=== PATIENT | female | born 1965 | race Caucasian/White ===

== ENCOUNTER 2023-08-03 13:26 | Emergency (ER) | payer OTHER ==
[~2023-08-03] VITALS: Ht 165.1 cm; Wt 72.6 kg
[~2023-08-03 13:26] MED LIST: ALPR.5 PO; ARIP10 PO; Amoxicillin875 MG PO; DULO30; DULO60 PO; ESTMET PO; ESTR2 PO; HYDACE5; MELO7.5 PO; MORP30ER PO; Norco 5-325 Ta1 EACH PO; TRAM50 PO
[2023-08-03 13:37] VITALS: BP 153/107
[2023-08-03 14:53] LABS: Source, Urine Voided
[2023-08-03 15:00] LABS: BASOPHILS ABSOLUTE AUTO 0.06 K/mm3 (0.00-0.23); BASOPHILS PERCENT AUTO 1 % (0-2); EOSINOPHILS ABSOLUTE AUTO 0.03 K/mm3 (0.00-0.68); EOSINOPHILS PERCENT AUTO 1 % (0-6); Hematocrit 42.2 % (33.0-51.0); Hemoglobin 14.5 g/dL (11.5-16.0); IMMATURE GRAN ABSOLUTE AUTO 0.01 K/mm3 (0.00-0.10); IMMATURE GRAN PERCENT AUTO 0 % (0-1); LYMPHOCYTES ABSOLUTE AUTO 1.55 K/mm3 (0.84-5.20); LYMPHOCYTES PERCENT AUTO 28 % (21-46); MONOCYTES ABSOLUTE AUTO 0.42 K/mm3 (0.16-1.47); MONOCYTES PERCENT AUTO 8 % (4-13); Mean Corpuscular HGB 30.7 pg (26.0-34.0); Mean Corpuscular HGB Conc 34.4 g/dL (31.5-36.5); Mean Corpuscular Volume 89 fL (80-100); Mean Platelet Volume 9.1 fL (9.1-12.4); NEUTROPHILS ABSOLUTE AUTO 3.43 K/mm3 (1.96-9.15); NEUTROPHILS PERCENT AUTO 62 % (41-73); Platelet Count 332 K/mm3 (150-400); RDW Coefficient Variation 12.2 % (11.7-14.2); RDW Standard Deviation 40.5 fL (35.1-46.3); Red Blood Cell Count 4.72 M/mm3 (3.80-5.20)
[2023-08-03 15:25] LABS: Albumin, Blood 3.9 g/dL (3.4-5.0); Albumin/Globulin Ratio 1.4 (0.8-1.8); Bilirubin, Total 0.3 mg/dL (0.1-1.0); Bun/Creatinine Ratio 14.7 (12.0-20.0); Calcium, Blood 8.8 mg/dL (8.5-10.1); Creatinine, Blood 0.82 mg/dL (0.40-1.00); Globulin, Blood 2.8 g/dL (2.2-4.0); Potassium, Blood 3.7 mmol/L (3.5-5.5); Total Protein, Blood 6.7 g/dL (6.4-8.2)
[2023-08-03 16:05] LABS: Appearance, Urine Hazy (Clear); Bilirubin, Urine Neg (Neg); Blood, Urine Neg (Neg); Color, Urine Yellow (P-Yellow); Glucose Qualitative, Urine Neg (Neg); Ketones, Urine Neg (Neg); Leukocyte Esterase, Urine Neg (Neg); Nitrite, Urine Neg (Neg); Protein, Urine Neg (Neg); Urobilinogen, Urine NORM (Normal)
[2023-08-03 16:27] LABS: Bacteria Many /hpf; Mucus Light (0-Heavy); Red Blood Cells, Urine 0-2 /hpf (0-2); Squamous Epithelial Cells Mod /hpf (Few); Transitional Epithelial Cells Rare /hpf (0-Rare); White Blood Cells, Urine 0-2 /hpf (0-5)
[2023-08-03] MEDS ORDERED: NAPR500ERA PO (16:50)
[2023-08-03] MEDS ORDERED: METPRE4DP PO (16:50)
[2023-08-03] MEDS ORDERED: Norco 5-325 Ta1 EACH PO (16:50)
== END 2023-08-03 16:57 | disposition home or self-care (01) ==
LOC: ER 13:26
PROVIDERS: Emergency Medicine
DX: M54.10 Radiculopathy, site unspecified (principal); Z79.899 Other long term (current) drug therapy; M19.90 Unspecified osteoarthritis, unspecified site; F17.210 Nicotine dependence, cigarettes, uncomplicated
CPT/HCPCS: 80053; 81001; 85025; 96374; 99283-25; A9270; J1100; J1885

== ENCOUNTER → 2023-08-10 | Outpatient (CLI) | payer OTHER ==
[~2023-08-10] MED LIST changes: +METPRE4DP PO; +NAPR500ERA PO
== END ==
LOC: LAB SHORT 11:10 → LAB 11:10
DX: R30.0 Dysuria (principal)
CPT/HCPCS: 87086

== ENCOUNTER → 2024-04-22 | Outpatient (CLI) | payer OTHER | END | disposition home or self-care (01) | LOC: LAB SHORT 15:38 | DX: N89.8 Other specified noninflammatory disorders of vagina (principal); R30.0 Dysuria | CPT/HCPCS: 87086 ==

== ENCOUNTER 2024-10-22 13:51 | Emergency (ER) | payer OTHER ==
[~2024-10-22] VITALS: Ht 162.6 cm; Wt 83.9 kg
[2024-10-22 14:18] VITALS: BP 186/81
[2024-10-22 14:52] LABS: BASOPHILS ABSOLUTE AUTO 0.04 K/mm3 (0.00-0.23); BASOPHILS PERCENT AUTO 1 % (0-2); EOSINOPHILS ABSOLUTE AUTO 0.06 K/mm3 (0.00-0.68); EOSINOPHILS PERCENT AUTO 1 % (0-6); Hematocrit 38.1 % (33.0-51.0); Hemoglobin 12.2 g/dL (11.5-16.0); IMMATURE GRAN ABSOLUTE AUTO 0.01 K/mm3 (0.00-0.10); IMMATURE GRAN PERCENT AUTO 0 % (0-1); LYMPHOCYTES ABSOLUTE AUTO 1.44 K/mm3 (0.84-5.20); LYMPHOCYTES PERCENT AUTO 25 % (21-46); MONOCYTES ABSOLUTE AUTO 0.34 K/mm3 (0.16-1.47); MONOCYTES PERCENT AUTO 6 % (4-13); Mean Corpuscular HGB 28.8 pg (26.0-34.0); Mean Corpuscular Volume 90 fL (80-100); NEUTROPHILS ABSOLUTE AUTO 3.93 K/mm3 (1.96-9.15); NEUTROPHILS PERCENT AUTO 68 % (41-73); Platelet Count 353 K/mm3 (150-400); RDW Coefficient Variation 12.8 % (11.7-14.2); RDW Standard Deviation 41.8 fL (35.1-46.3); Red Blood Cell Count 4.24 M/mm3 (3.80-5.20); White Blood Cell Count 5.82 K/mm3 (4.00-11.30)
[2024-10-22 15:16] LABS: Albumin, Blood 3.9 g/dL (3.4-5.0); Bilirubin, Total 0.4 mg/dL (0.1-1.0); Bun/Creatinine Ratio 10.9 (12.0-20.0); Calcium, Blood 9.8 mg/dL (8.5-10.1); Creatinine, Blood 0.92 mg/dL (0.40-1.00); Globulin, Blood 3.8 g/dL (2.2-4.0); Potassium, Blood 4.4 mmol/L (3.5-5.5); Total Protein, Blood 7.7 g/dL (6.4-8.2)
[2024-10-22] MEDS ORDERED: Percocet 5-3251 EACH PO (16:32)
[2024-10-25] MEDS ORDERED: Percocet 5-3251 EACH PO (13:15)
== END 2024-10-22 16:48 | disposition home or self-care (01) ==
LOC: ER 13:51
PROVIDERS: Student in an Organized Health Care Education/Training Program
DX: G89.18 Other acute postprocedural pain (principal); M54.50 Low back pain, unspecified; R20.2 Paresthesia of skin; I10 Essential (primary) hypertension; F17.210 Nicotine dependence, cigarettes, uncomplicated; Z79.899 Other long term (current) drug therapy
CPT/HCPCS: 71046; 80053; 85025; 93005; 93010; 99283-25

== ENCOUNTER 2025-08-05 11:18 | Inpatient (IN) | payer OTHER ==
[~2025-08-05] VITALS: Ht 162.6 cm; Wt 87.0 kg
[~2025-08-05 11:18] MED LIST changes: +Percocet 5-3251 EACH PO
[2025-08-05] MEDS ORDERED: Albuterol 2.5 MG/3 ML VIAL INH SCH (11:55)
[2025-08-05] MEDS ORDERED: Ketorolac Tromethamine 30mg Vial IV ONE (12:00)
[2025-08-05 12:03] LABS: BASOPHILS ABSOLUTE AUTO 0.03 K/mm3 (0.00-0.23); BASOPHILS PERCENT AUTO 0 % (0-2); EOSINOPHILS ABSOLUTE AUTO 0.03 K/mm3 (0.00-0.68); EOSINOPHILS PERCENT AUTO 0 % (0-6); Hematocrit 39.6 % (33.0-51.0); Hemoglobin 13.4 g/dL (11.5-16.0); IMMATURE GRAN ABSOLUTE AUTO 0.04 K/mm3 (0.00-0.10); IMMATURE GRAN PERCENT AUTO 0 % (0-1); LYMPHOCYTES ABSOLUTE AUTO 1.55 K/mm3 (0.84-5.20); LYMPHOCYTES PERCENT AUTO 16 % (21-46); MONOCYTES ABSOLUTE AUTO 0.82 K/mm3 (0.16-1.47); MONOCYTES PERCENT AUTO 8 % (4-13); Mean Corpuscular HGB Conc 33.8 g/dL (31.5-36.5); Mean Corpuscular Volume 87 fL (80-100); NEUTROPHILS ABSOLUTE AUTO 7.25 K/mm3 (1.96-9.15); NEUTROPHILS PERCENT AUTO 75 % (41-73); NRBC ABSOLUTE 0.00 K/mm3 (0.00-0.02); NRBC Auto 0.0 /100 WBC (0.0-0.2); Platelet Count 278 K/mm3 (150-400); RDW Coefficient Variation 13.6 % (11.7-14.2); RDW Standard Deviation 42.5 fL (35.1-46.3)
[2025-08-05 13:58] LABS: Alanine Aminotransfer (ALT/SGP 23.0 U/L (12-78); Albumin, Blood 3.6 g/dL (3.4-5.0); Albumin/Globulin Ratio 1.2 (0.8-1.8); Anion Gap 7.0 mmol/L (3-11); Aspartate Aminotrans (AST/SGOT 16.0 U/L (12-37); Bilirubin, Total 0.8 mg/dL (0.1-1.0); Blood Urea Nitrogen 10.0 mg/dL (8-24); CO2, Blood 34.0 mmol/L (21-32); Calcium, Blood 8.8 mg/dL (8.5-10.1); Chloride, Blood 100.0 mmol/L (98-108); Creatinine, Blood 0.76 mg/dL (0.40-1.00); Globulin, Blood 3.1 g/dL (2.2-4.0); Glucose, Blood 122.0 mg/dL (70-99); Potassium, Blood 3.5 mmol/L (3.5-5.5); Sodium, Blood 137.0 mmol/L (136-145); Total Protein, Blood 6.7 g/dL (6.4-8.2)
[2025-08-05 15:02] LABS: Influenza A, PCR NEGATIVE (NEGATIVE); Influenza B, PCR NEGATIVE (NEGATIVE); Resp Syncytial Virus, PCR NEGATIVE (NEGATIVE); SARS-Cov-2 (COVID-19) PCR, MMC NEGATIVE (NEGATIVE)
[2025-08-05] MEDS ORDERED: ABILIFY MYCITE10 M2 PO (15:28)
[2025-08-05] MEDS ORDERED: ONDA4ODT PO (15:29)
[2025-08-05] MEDS ORDERED: PREG100 PO (15:29)
[2025-08-05] MEDS ORDERED: TIZA4 PO (15:29)
[2025-08-05] MEDS ORDERED: FLU VACC TS2025-26(6MOS UP)/PF 45 MCG/0.5 ML SYRINGE IM SCH (18:00)
[2025-08-05] MEDS ORDERED: Ipratropium/Albuterol SulF 2.5-0.5MG/3 ML Amp INH SCH (18:00)
[2025-08-05] MEDS ORDERED: Ondansetron HCl 2 MG / ML 2ML Vial IV PRN (18:00)
[2025-08-05] MEDS ORDERED: Albuterol 2.5 MG/3 ML VIAL INH PRN (18:00)
[2025-08-05] MEDS ORDERED: HYDROcodone 5-APAP 325 TAB PO PRN (18:05)
[2025-08-05 18:31] LABS: pH Blood Venous 7.42 (7.34-7.37)
[2025-08-05 21:00] VITALS: BP 124/69
[2025-08-05] MEDS ORDERED: PERCOCET 10-321 EA13 PO (21:11)
[2025-08-05] MEDS ORDERED: HYDPAM50 PO (21:12)
[2025-08-05] MEDS ORDERED: AMLO10 PO (21:13)
[2025-08-05] MEDS ORDERED: Miconazole Nitrate 2% 85 GM PWD TOP SCH (22:10)
[2025-08-05] MEDS ORDERED: OxyCODONE 10/Acetamin 325 TABLET PO PRN (22:10)
[2025-08-06 04:42] VITALS: BP 133/84
[2025-08-06 04:42] LABS: Hematocrit 37.3 % (33.0-51.0); Hemoglobin 12.5 g/dL (11.5-16.0); Mean Corpuscular HGB Conc 33.5 g/dL (31.5-36.5); Mean Corpuscular Volume 88 fL (80-100); NRBC ABSOLUTE 0.00 K/mm3 (0.00-0.02); NRBC Auto 0.0 /100 WBC (0.0-0.2); Platelet Count 235 K/mm3 (150-400); RDW Coefficient Variation 13.7 % (11.7-14.2); RDW Standard Deviation 44.1 fL (35.1-46.3)
[2025-08-06 05:15] LABS: Anion Gap 8.0 mmol/L (3-11); Blood Urea Nitrogen 21.0 mg/dL (8-24); CO2, Blood 29.0 mmol/L (21-32); Calcium, Blood 9.2 mg/dL (8.5-10.1); Chloride, Blood 100.0 mmol/L (98-108); Creatinine, Blood 0.75 mg/dL (0.40-1.00); Glucose, Blood 120.0 mg/dL (70-99); Potassium, Blood 3.9 mmol/L (3.5-5.5); Sodium, Blood 133.0 mmol/L (136-145)
--- NOTE | 2025-08-06 05:57 | NUR ---
SHIFT SUMMARY PT ADMITTED FOR HYPOXIA AND COPD. O2 WEANED FROM 4L TO 3L DURING THE NIGHT, CONTINUOUS PULSE OX IN PLACE. PT DENIES SOB OR RESPIRATORY DISTRESS. IV STEROIDS GIVEN PER ORDER. PERCOCET AND ZANFLEX GIVEN FOR BACK PAIN PER EMAR. PT SBA TO BATHROOM WITH STEADY GAIT. MICONIZOLE POWDER FOR RED/MOIST GROIN. PT SLEPT INTERMITTENTLY DURING THE NIGHT.
[2025-08-06 07:36] VITALS: BP 141/81
[2025-08-06] MEDS ORDERED: Enoxaparin 40 MG/0.4 ML SYR SC SCH (09:00)
[2025-08-06] MEDS ORDERED: DULoxetine HCL 60 MG Capsule DR PO SCH (09:00)
[2025-08-06] MEDS ORDERED: CefTRIAXone Sodium 1,000 MG in NS 100 ML IV SCH (09:00)
--- NOTE | 2025-08-06 14:27 | NUR ---
Pt. is awake in bed and welcomes my visit. Pt. is pleasant. Facilitated a life review and considered matters of guillermo and belief. Pt. verbalizes her interest in visiting [facility] in the [facility]. Listen with interest and encouragement. A friend arrived, so I prayed with the Pt. Pt. verbalized gratitude for the spiritual care visit.
[2025-08-06 17:05] VITALS: BP 125/75
[2025-08-06] MEDS ORDERED: NS 500 ML IV ONE (17:55)
--- NOTE | 2025-08-06 18:20 | NUR ---
NO ACUTE CHANGES, ENCOURAGED COUGHING AND DEEP BREATHING, DESATS EASILY, PULSE OX ON, INDEPEDANT IN ROOM, STAND BY ASSIST, CALL LIGHT WITH IN REACH
[2025-08-06 19:52] LABS: Source, Urine Clean Catch
[2025-08-06 19:55] VITALS: BP 118/74
[2025-08-06 19:55] LABS: Bilirubin, Urine Neg (Neg); Color, Urine Yellow (P-Yellow); Glucose Qualitative, Urine Neg (Neg); Ketones, Urine Neg (Neg); Leukocyte Esterase, Urine 1+ (Neg); Protein, Urine 1+ (Neg); Specific Gravity, Urine 1.015 (1.003-1.022); Urobilinogen, Urine NORM (Normal)
[2025-08-06 20:11] LABS: Red Blood Cells, Urine 0-2 /hpf (0-2)
[2025-08-06 21:07] LABS: U Amphetamine Screen DETECTED; U Barbiturate Screen Not Detected; U Benzodiazapine Screen Not Detected; U Buprenorphine Screen Not Detected; U Cannabinoids Screen Not Detected; U Cocaine Screen Not Detected; U Methadone Screen Not Detected; U Methamphetamine Screen Not Detected; U Opiates Screen Not Detected; U Oxycodone Screen DETECTED; U Phencyclidine Screen Not Detected
[2025-08-07 04:41] VITALS: BP 149/101
--- NOTE | 2025-08-07 05:26 | NUR ---
END OF SHIFT SUMMARY: A&Ox. PLEASANT AND COOPERATIVE WITH CARE. CALLS APPROPRIATELY AND IS ABLE TO ADVOCATE NEEDS EFFECTIVELY. VSS. BREATHING EVEN AND UNLABORED c 1 LPM/NC. CONTINENT OF BOWEL AND BLADDER; LBM 08/03/25 AND STATES SHE WILL ASK PROVIDER FOR STOOL SOFTENER DURING ROUNDS. TOLERATING DIET. AMBULATES INDEPENDENTLY. MEDS WHOLE c FLUIDS. MEDICATED PRN PAIN x2 OXY AND TIZANIDINE. UA TO LAB; Cx INDICATED. UDS + OXY AND AMPHETAMINES. BED IN LOWEST POSITION, CALL LIGHT WITHIN REACH, ALL NEEDS MET. REPORT TO ONCOMING NURSE.
[2025-08-07 07:16] LABS: Hematocrit 38.2 % (33.0-51.0); Hemoglobin 12.9 g/dL (11.5-16.0); Mean Corpuscular HGB Conc 33.8 g/dL (31.5-36.5); Mean Corpuscular Volume 87 fL (80-100); NRBC ABSOLUTE 0.00 K/mm3 (0.00-0.02); NRBC Auto 0.0 /100 WBC (0.0-0.2); Platelet Count 247 K/mm3 (150-400); RDW Coefficient Variation 13.7 % (11.7-14.2); RDW Standard Deviation 43.9 fL (35.1-46.3)
[2025-08-07 07:30] VITALS: BP 147/95
[2025-08-07 07:37] LABS: Alanine Aminotransfer (ALT/SGP 21.0 U/L (12-78); Albumin, Blood 3.0 g/dL (3.4-5.0); Albumin/Globulin Ratio 1.0 (0.8-1.8); Anion Gap 6.0 mmol/L (3-11); Aspartate Aminotrans (AST/SGOT 14.0 U/L (12-37); Bilirubin, Total 0.4 mg/dL (0.1-1.0); Blood Urea Nitrogen 18.0 mg/dL (8-24); CO2, Blood 31.0 mmol/L (21-32); Calcium, Blood 9.0 mg/dL (8.5-10.1); Chloride, Blood 102.0 mmol/L (98-108); Creatinine, Blood 0.7 mg/dL (0.40-1.00); Globulin, Blood 3.1 g/dL (2.2-4.0); Glucose, Blood 86.0 mg/dL (70-99); Potassium, Blood 4.0 mmol/L (3.5-5.5); Sodium, Blood 135.0 mmol/L (136-145); Total Protein, Blood 6.1 g/dL (6.4-8.2)
[2025-08-07] MEDS ORDERED: Polyethylene Glycol 3350 17 gm PO PRN (08:00)
[2025-08-07] MEDS ORDERED: Polyethylene Glycol 3350 17 gm PO ONE (08:00)
[2025-08-07] MEDS ORDERED: NS 500 ML IV PRN (09:40)
[2025-08-07] MEDS ORDERED: ALBU90OI INH (12:02)
[2025-08-07] MEDS ORDERED: AZIT500 PO (12:03)
[2025-08-07] MEDS ORDERED: IPRAT-ALBUT 0.5-3 ML INH (12:04)
[2025-08-07] MEDS ORDERED: PRED20 PO (12:05)
[2025-08-07] MEDS ORDERED: ANORO ELLIPTA1 EACH INH (12:05)
--- NOTE | 2025-08-07 14:51 | NUR ---
PT DISCHARGED AT 1434 WITH DAUGHTER TO TRANSPORT HOME. NO DISTRESS NOTED AOX4 AND COOPERATIVE OF CARE. PT COLLECTED ALL PERSONAL BELONINGS AND TOOK HOME. PT HAD PAPERWORK REVIEWED AND EDUCATIONAL MATERIAL SENT WITH HER. PT ESCORTED OUT BY AID WITH WHEELCHAIR TO N ENTRANCE.
--- NOTE | 2025-08-07 14:55 | NUR ---
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
== END 2025-08-07 14:33 | disposition home or self-care (01) | DRG 189 ==
LOC: ER 11:18 → MEDS 17:56 → ENPENDDIS 08-07 11:05 → MEDS 08-07 14:33
PROVIDERS: Emergency Medicine; Nurse Practitioner Acute Care; Registered Nurse; ADMIT Student in an Organized Health Care Education/Training Program
DX: J96.01 Acute respiratory failure with hypoxia (principal); G93.41 Metabolic encephalopathy; F11.20 Opioid dependence, uncomplicated; J44.1 Chronic obstructive pulmonary disease with (acute) exacerbation; J47.1 Bronchiectasis with (acute) exacerbation; J44.0 Chronic obstructive pulmonary disease with (acute) lower respiratory infection; F41.0 Panic disorder [episodic paroxysmal anxiety]; M19.90 Unspecified osteoarthritis, unspecified site; M54.2 Cervicalgia; G89.29 Other chronic pain; M79.7 Fibromyalgia; F12.10 Cannabis abuse, uncomplicated; Z99.81 Dependence on supplemental oxygen; Z79.899 Other long term (current) drug therapy; Z98.51 Tubal ligation status; Z90.49 Acquired absence of other specified parts of digestive tract; Z79.2 Long term (current) use of antibiotics; Z87.891 Personal history of nicotine dependence; Z23 Encounter for immunization
CPT/HCPCS: 36415; 80048; 80053; 81001; 82803; 83880; 84145; 84484; 85025; 85027; 85379; 87086; 87637; 93005; 93010; 94640; 94664; 94760; 94762; 96374; 96375; 97110; 97116; 97161; 99285-25; A9270; J0456; J0696; J1650; J1885; J2919; J7040; J7050; J7512